=== PATIENT | male | born 1965 | race Asian ===

== ENCOUNTER 2016-06-16 06:18 | Day surgery (SDC) | payer MEDICAID ==
[~2016-06-16] VITALS: Ht 175.3 cm; Wt 74.8 kg
[2016-06-16] MEDS ORDERED: GLUCOPHAGE500 MG PO (07:19)
[2016-06-16] MEDS ORDERED: ZESTRIL5 MG PO (07:20)
[2016-06-16] MEDS ORDERED: ASPIR 8181 M1 PO (07:20)
[2016-06-16] MEDS ORDERED: LOPID600 MG PO (07:21)
[2016-06-16] MEDS ORDERED: LIDOCAINE 2% 100 MG/5 ML UJET TP ONE (07:34)
== END 2016-06-16 08:35 | disposition home or self-care (01) ==
LOC: MDS 06:18 → MMU 06:21 → MDS 08:35
PROVIDERS: ATTEND Internal Medicine Gastroenterology
DX: Z12.11 Encounter for screening for malignant neoplasm of colon (principal); E78.5 Hyperlipidemia, unspecified; E11.9 Type 2 diabetes mellitus without complications